=== PATIENT | female | born 1980 | race Caucasian/White ===

== ENCOUNTER 2020-04-20 14:36 | Outpatient (CLI) | payer OTHER, SELFPAY ==
--- NOTE | ~2020-04-20 | US_ITS ---
EXAMINATION: US thyroid DATE: 04/20/2020 15:02 INDICATION: Hypothyroidism, unspecified. TECHNIQUE: Multiple ultrasound images of the thyroid were obtained. COMPARISON: None. FINDINGS: The right thyroid lobe measures 3.7 x 1.2 x 1.3 cm. The left thyroid lobe measures 3.2 x 1.1 x 0.9 c m. The thyroid demonstrates diffusely heterogeneous echogenicity. No discrete nodule. Vascularity is normal. IMPRESSION: 1. Heterogeneous thyroid, which may be chronic lymphocytic (Deep) thyroiditis. Reviewed, dictated and finalized at location A. IMPRESSION: 1. Heterogeneous thyroid, which may be chronic lymphocytic (Deep) thyroidi tis.
== END 2020-04-20 14:37 | disposition home or self-care (01) ==
PROVIDERS: PCP Nurse Practitioner Family; Visit Provider Internal Medicine Endocrinology, Diabetes & Metabolism
DX: E03.9 Hypothyroidism, unspecified (principal); E04.2 Nontoxic multinodular goiter
CPT/HCPCS: 76536

== ENCOUNTER 2022-04-10 09:09 | Outpatient (CLI) | payer OTHER, SELFPAY | END 2022-04-10 09:10 | disposition home or self-care (01) | LOC: ANHWCLAB 09:12 | PROVIDERS: PCP Nurse Practitioner Family; Visit Provider Internal Medicine Endocrinology, Diabetes & Metabolism | DX: E03.9 Hypothyroidism, unspecified (principal) | CPT/HCPCS: 36415; 84439; 84443 ==

== ENCOUNTER → 2023-07-26 15:30 | Outpatient (CLI) | payer OTHER, SELFPAY ==
--- NOTE | ~2023-07-26 | MM_ITS ---
EXAMINATION: MM screening juan j BI w nguyen HISTORY: Screening mammogram TECHNIQUE: Craniocaudal and mediolateral oblique 3-D tomosynthesis images were obtained and synthetic 2-D images were generated. CAD analysis was submitted and interpreted. COMPARISON: No prior mammogram is available for comparison at this institution. BREAST PARENCHYMAL COMPOSITION:There are scattered areas of fibroglandular density. FINDINGS: Coarse benign calcifications are present at the upper, outer left breast. No suspicious mas s, calcification, or architectural distortion are identified in either breast to suggest malignancy. There has been no suspicious interval change. IMPRESSION: No mammographic evidence of malignancy. Recommend routine screening mammography in one year. BI-RADS Category 2: Benign finding(s). Reviewed, dictated and finalized at location M.
== END ==
PROVIDERS: PCP Family Medicine; Visit Provider Family Medicine
DX: Z12.31 Encounter for screening mammogram for malignant neoplasm of breast (principal)
CPT/HCPCS: 77063; 77067

== ENCOUNTER 2024-02-27 01:03 | Day surgery (SDC) | payer OTHER, SELFPAY ==
[2024-02-14 15:15] VITALS: BMI 40.8
--- NOTE | 2024-02-27 08:44 | P.PNAN_ITS ---
Anes - Initial Pre Proc Eval Procedure: Operation Date: 02/27/24 12:30 Proposed Procedures p Colonoscopy - Jaxon Sprague MD Date/Time: 02/27/24 08:44 Surgeon: Jaxon Sprague MD Pre Op Diagnosis: Hematochezia Patient Data Age: 43 Gender: F Height: 1.63 m Weight: 108 kg Allergies Allergy/AdvReac Type Severity Reaction Status Date / Time No Known Allergies Allergy Verified 02/27/24 11:15 Home Medications Medication Instructions Recorded Confirmed Type ferrous sulfate 325 mg (65 mg 325 mg PO DAILY 10/09/19 02/27/24 History iron) tablet magnesium 250 mg tablet 400 mg PO DAILY 04/12/21 02/14/24 History cholecalciferol (vitamin D3) 25 25 mcg PO DAILY 04/01/23 02/14/24 History mcg (1,000 unit) capsule levothyroxine 125 mcg tablet 125 mcg PO .COMPLEX #90 tabs 09/03/23 Rx Patient hx anesthesia problems: none Family hx anesthesia problems: none Results Review: All pre-operative results and documents have been reviewed as part of the pre- operative evaluation. [facility] Past Medical History Medical History BMI greater than 40 Dyslipidemia Goiter Hypothyroidism (acquired) Prediabetes Surgical History Surgical History No pertinent past surgical history Family History Family History Other Cerebrovascular accident Family history of arthritis Social History Social History Smoking status: Never smoker Second hand tobacco smoke exposure: No Additional smoking assessment comments: smoked occassionally in the past Alcohol intake: never Substance use: never Substance use type: does not use Living arrangements: with family Additional living arrangements comments: and son Occupation/Education: occupation 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 Gender identity (if verbalized by the patient): Female Spiritual care concerns: No Anes - Eval Final PreProcedure Day of Procedure 02/27/24 08:44 Patient weight: morbidly obese Heart: regular rate and rhythm Lungs: clear to auscultation Airway: Mallampati scale class II Neurological: alert and oriented Last oral intake: >/= 8 hours ASA classification: III Emergent: no Anesthetic plan: proceed Anesthesia type and monitoring: general GIVS and standard monitoring Results Review: All pre-operative results and documents have been reviewed as part of the pre- operative evaluation. Informed Consent: The patient's anesthetic plan and its attendant risks and benefits were discussed with the patient/family/POA. Questions were solicited and answers provided to the satisfaction of the patient/family/POA.
[2024-02-27 11:17] VITALS: BP 121/91; PULSE 89; RESP 16; TEMP 36.1; O2SAT 98
[2024-02-27] MEDS: LACTATED RINGERS 1,000 ML 150 ML IV CONT (11:26)
--- NOTE | 2024-02-27 12:46 | PM.HPGS ---
History of Present Illness History of Present Illness Consent: Risks, benefits, and alternatives have been discussed and questions answered. Patient agrees to proceed with procedure. Chief complaint: Hematochezia Narrative: Elizabeth Villatoro is a 43 year old female with intermittent rectal bleeding, never had colonoscopy Review of Systems Review of Systems: All systems reviewed & are unremarkable except as noted in HPI and below PMFSH Past Medical History Medical History (Updated 02/27/24 @ 12:46 by Jaxon Sprague MD) BMI greater than 40 Dyslipidemia Goiter Hematochezia Hypothyroidism (acquired) Prediabetes Surgical History Surgical History No pertinent past surgical history Family History Family History Other Cerebrovascular accident Family history of arthritis Social History Social History Smoking status: Never smoker Second hand tobacco smoke exposure: No Additional smoking assessment comments: smoked occassionally in the past Alcohol intake: never Substance use: never Substance use type: does not use Living arrangements: with family Additional living arrangements comments: and son Occupation/Education: occupation 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 Gender identity (if verbalized by the patient): Female Spiritual care concerns: No Meds Home Medications and Allergies Home Medications Medication Instructions Recorded Confirmed Type ferrous sulfate 325 mg (65 mg 325 mg PO DAILY 10/09/19 02/27/24 History iron) tablet magnesium 250 mg tablet 400 mg PO DAILY 04/12/21 02/14/24 History cholecalciferol (vitamin D3) 25 25 mcg PO DAILY 04/01/23 02/14/24 History mcg (1,000 unit) capsule levothyroxine 125 mcg tablet 125 mcg PO .COMPLEX #90 tabs 09/03/23 Rx Allergies Allergy/AdvReac Type Severity Reaction Status Date / Time No Known Allergies Allergy Verified 02/27/24 11:15 Vital Signs Vital Signs - 24 hr 02/27/24 11:17 Temperature 97.0 F L Pulse Rate 89 Respiratory Rate 16 Blood Pressure 121/91 H Pulse Oximetry 98 Oxygen Delivery Room Air Exam Const: General: comfortable and no acute distress HENMT: Face/Nose/Sinus: Normal nares present Eyes: General: appearance normal, both eyes and all related structures Neck: Neck: no JVD Resp: Auscultation: clear to auscultation bilaterally Cardio: Rate: regular rate Rhythm: regular rhythm GI: Inspection: non-distended GI Palp: Yes Soft to palpation Skin: General skin exam: normal color Neuro: General: gait normal Speech: normal speech Extrem: General: normal to inspection Psych: Mental Status: mental status grossly normal Assessment and Plan Assessment and plan (1) Hematochezia: Code(s): K92.1 - Melena Status: Acute Assessment and Plan: colonoscopy
[2024-02-27 13:02] VITALS: BP 117/73; PULSE 78; RESP 20; O2SAT 96
[2024-02-27 13:12] VITALS: BP 113/76; PULSE 74; RESP 24; O2SAT 96
[2024-02-27 13:22] VITALS: BP 125/83; PULSE 70; RESP 22; O2SAT 98
== END 2024-02-27 13:26 | disposition home or self-care (01) ==
PROVIDERS: PCP Family Medicine; Visit Provider Internal Medicine Gastroenterology
PROC: 0DJD8ZZ Inspection of Lower Intestinal Tract, Via Natural or Artificial Opening Endoscopic (ICD-10-PCS; CPT 45378; principal; 2024-02-27 12:30)
DX: K92.1 Melena (principal); K64.8 Other hemorrhoids; E78.5 Hyperlipidemia, unspecified; E03.9 Hypothyroidism, unspecified; R73.03 Prediabetes; E66.9 Obesity, unspecified; Z68.39 Body mass index [BMI] 39.0-39.9, adult; Z82.49 Family history of ischemic heart disease and other diseases of the circulatory system
CPT/HCPCS: 45378; J2001; J2704; J7120

== ENCOUNTER 2024-07-29 14:54 | Outpatient (CLI) | payer OTHER, SELFPAY ==
--- NOTE | ~2024-07-29 | MM_ITS ---
EXAMINATION: MM screening juan j BI w nguyen HISTORY: Screening TECHNIQUE: Craniocaudal and mediolateral oblique 3-D tomosynthesis images were obtained and synthetic 2-D images were generated. CAD analysis was submitted and interpreted. COMPARISON: 07/26/2023 BREAST PARENCHYMAL COMPOSITION: There are scattered areas of fibroglandular density. FINDINGS: There is no evidence of suspicious mass, calcification, or architectural distortion to sugg est malignancy in either breast. There has been no suspicious interval change. IMPRESSION: 1. No mammographic evidence of malignancy. 2. Recommend routine screening mammography in one year. BI-RADS Category 1: Negative Reviewed, dictated and finalized at location B.
== END 2024-07-29 14:55 | disposition home or self-care (01) ==
LOC: MICIMG 14:56
PROVIDERS: PCP Family Medicine; Visit Provider Family Medicine
DX: Z12.31 Encounter for screening mammogram for malignant neoplasm of breast (principal)
CPT/HCPCS: 77063; 77067

== ENCOUNTER 2024-12-09 14:58 | Outpatient (CLI) | payer OTHER, SELFPAY ==
--- NOTE | ~2024-12-09 | US_ITS ---
EXAMINATION: US pelvic complete w TV INDICATION: Abnormal uterine bleeding Comparison:No prior studies for comparison. TECHNIQUE: Multiple transabdominal and endovaginal sonographic images of the pelvis performed. FINDINGS: The uterus measures 10.5 x 6.4 x 8.1 cm. The endometrial complex measures 1.3 cm. The right ovary measures 3.8 x 2.3 x 2.9 cm and the left ovary measures 3.9 x 2.7 x 5.1 cm. There is a complicated septated cystic mass of the right ovary measuring 2.6 x 2.1 x 2 cm, possibly an involut ing corpus luteal cyst. There is a simple cyst of the left ovary measuring 2.6 cm. Normal doppler sig nal in both ovaries. There is no free fluid in the pelvis. There are no abnormal masses seen on either side. IMPRESSION: 1. Endometrial thickening measuring 1.3 cm. 2: Complicated cyst of the right ovary measuring 2.6 cm. Recommend follow-up ultrasound in 1-2 month s to assess for resolution. Reviewed, dictated and finalized at location A. HAMMER OPERATOR IMPRESSION: 1. Endometrial thickening measuring 1.3 cm. 2: Complicated cyst of the right ovary measuring 2.6 cm. Recommend follow-up u ltrasound in 1-2 months to assess for resolution.
== END 2024-12-09 14:59 | disposition home or self-care (01) ==
PROVIDERS: PCP Nurse Practitioner Obstetrics & Gynecology; Visit Provider Nurse Practitioner Obstetrics & Gynecology
DX: N93.9 Abnormal uterine and vaginal bleeding, unspecified (principal); N83.201 Unspecified ovarian cyst, right side
CPT/HCPCS: 76830; 76856

== ENCOUNTER 2025-01-25 14:55 | Outpatient (CLI) | payer OTHER, SELFPAY | END 2025-01-25 14:56 | disposition home or self-care (01) | PROVIDERS: PCP Nurse Practitioner Obstetrics & Gynecology; Visit Provider Nurse Practitioner Obstetrics & Gynecology | DX: N83.291 Other ovarian cyst, right side (principal) | CPT/HCPCS: 76830; 76856 ==

== ENCOUNTER 2025-02-10 14:25 | Outpatient (CLI) | payer OTHER, SELFPAY ==
[2025-02-10 15:43] LABS: Beta HCG Quantitative < 2.39 mIU/ML
--- OUTSIDE RECORDS SUMMARY | 2025-02-10 16:10 | XMS_ITS | Referral Summary ---
Author Organization [facility] Address [address] [place] [address] Care Team Providers Care Car Repairer Pullman Name Role Phone Naomi Watts NP Primary Care Provider [phone] Encounters Date Type Department Care Team Description 01/22/2025 3:45 PM ADMITTING SUPERVISOR Office Visit [facility] [place] [address] [place] [address] Rosetta Clark NP Upper respiratory tract infection, unspecified type (Primary Dx); Acute cough from Last 3 Months Allergies No known active allergies Medications levothyroxine (SYNTHROID) 125 mcg tablet Take 1 tablet (125 mcg total) by mouth daily 11/27/19 23 Active ferrous sulfate (IRON ORAL) Take by mouth Acti ve MAGNESIUM ORAL Take by mouth A ctive docusate sodium (COLACE) 100 mg capsuleIndicati ons:constipatio n Take 1-2 pills daily for chronic constipation management. 180 capsule 3 08/06/20 24 Active hydrocortisone (ANUSOL-HC) 25 mg suppository Insert 1 suppository (25 mg total) into the rectum 2 (two) times a day as needed for hemorrhoids Take prior to procedure as directed 24 suppository 3 08/06/20 24 Active aspirin 81 mg enteric coated tablet Take 1 tablet (81 mg total) by mouth daily Active cetirizine (ZyrTEC) 10 mg tablet Take by mouth Active potassium chloride, bulk, powder Take by mouth Active cyanocobalamin (Vitamin B-12) 1,000 mcg tablet Take 3 tablets (3,000 mcg total) by mouth daily Active albuterol HFA (PROVENTIL HFA,VENTOLIN HFA,PROAIR HFA) 90 mcg/actuation inhalerIndicati ons:Upper respiratory tract infection, unspecified type,Acute cough Inhale 2 puffs every 6 (six) hours as needed for wheezing for up to 7 days 1 each 01/22/20 25 Active benzonatate (TESSALON) 100 mg capsuleIndicati ons:Cough Take 1 capsule (100 mg total) by mouth 3 (three) times a day as needed for cough 42 capsule 01/22/20 25 Active azithromycin (ZITHROMAX) 250 mg tabletIndicatio ns:Upper respiratory tract infection, unspecified type,Acute cough Take 2 tabs (500 mg) by mouth today, than 1 tab (250 mg) daily for 4 days. 6 tablet 01/22/20 25 025 predniSONE (DELTASONE) 20 mg tabletIndicatio ns:Upper respiratory tract infection, unspecified type,Acute cough Take 2 tablets (40 mg) by mouth daily for 5 days 10 tablet 01/22/20 25 025 Active Problems Problem Noted Date Diagnosed Date Chronic constipation 08/06/2024 Internal hemorrhoids 08/06/2024 Social History Tobacco Use Types Packs/Day Years Used Date Smoking Tobacco: Former Cigarettes Tobacco Cessation:Counseling Given: Not Answered Comments Unknown Sex and Gender Information Value Date Recorded Sex Assigned at Not on file Legal Sex Female 10:48 AM ADMITTING SUPERVISOR Gender Identity Not on file Sexual Orientation Not on file Last Filed Vital Signs Vital Sign Reading Time Taken Comments Blood Pressure 130/84 01/22/2025 3:56 PM ADMITTING SUPERVISOR Pulse 84 01/22/2025 3:56 PM ADMITTING SUPERVISOR Temperature 36.9 C (98.4 F) 01/22/2025 3:56 PM ADMITTING SUPERVISOR Respiratory Rate 22 01/22/2025 3:56 PM ADMITTING SUPERVISOR Oxygen Saturation 94% 01/22/2025 3:56 PM ADMITTING SUPERVISOR 92-94 Inhaled Oxygen Concentration - - Weight 111.1 kg (245 lb) 01/22/2025 3:56 PM ADMITTING SUPERVISOR Height 160 cm (5' 3 ) 01/22/2025 3:56 PM ADMITTING SUPERVISOR Body Mass Index 43.4 01/22/2025 3:56 PM ADMITTING SUPERVISOR Plan of Treatment Not on file Insurance [employer] Care Teams Car Repairer Pullman Relationship Specialty Start Date End Date Naomi Watts NP PCP - General 10/10/21
--- OUTSIDE RECORDS SUMMARY | 2025-02-10 16:10 | XMS_ITS | Clinical Summary ---
Author Organization [facility] Address [address] [place] [address] Care Team Providers Care Senior Software Qa Engineer Name Role Phone Naomi Watts NP Primary Care Provider [phone] Allergies No known active allergies Medications levothyroxine [...] Date Chronic constipation 08/06/2024 Internal hemorrhoids 08/06/2024 Encounters Date Type Department Care Team Description 01/22/2025 3:45 PM BRIM IRONER HAND Office Visit [facility] [place] [address] [place] [address] Rosetta Clark NP Upper respiratory tract infection, unspecified type (Primary Dx); Acute cough from Last 3 Months Surgical History Surgery Date Site/Laterality Comments NO PAST SURGERIES Medical History Medical History Date Comments Overactive thyroid gland Family History Medical History Relation Name Comments Cancer Father Thyroid disease Mother Relation Name Status Comments Father Mother Alive Social History Tobacco Use Types Packs/Day Years Used Date Smoking Tobacco: Former Cigarettes Tobacco Cessation:Counseling Given: Not Answered Comments Unknown Sex and Gender Information Value Date Recorded Sex Assigned at Not on file Legal Sex Female 10:48 AM BRIM IRONER HAND Gender Identity Not on file Sexual Orientation Not on file Obstetrics History Last Filed Vital Signs Vital Sign Reading Time Taken Comments Blood Pressure 130/84 01/22/2025 3:56 PM BRIM IRONER HAND Pulse 84 01/22/2025 3:56 PM BRIM IRONER HAND Temperature 36.9 C (98.4 F) 01/22/2025 3:56 PM BRIM IRONER HAND Respiratory Rate 22 01/22/2025 3:56 PM BRIM IRONER HAND Oxygen Saturation 94% 01/22/2025 3:56 PM BRIM IRONER HAND 92-94 Inhaled Oxygen Concentration - - Weight 111.1 kg (245 lb) 01/22/2025 3:56 PM BRIM IRONER HAND Height 160 cm (5' 3 ) 01/22/2025 3:56 PM BRIM IRONER HAND Body Mass Index 43.4 01/22/2025 3:56 PM BRIM IRONER HAND Plan of Treatment Health Maintenance Due Date Last Done Comments Cervical Cancer Screening 1980 Depression Screening 1980 Hepatitis C Screening 1980 Varicella Vaccines (1 of 2 - 13+ 2-dose series) 1993 Hepatitis B Screening 1998 Regular Well Visit/Exam 18-64 1998 Breast Cancer Screening-Mammogram 07/26/2024 07/26/2023, 07/26/2023 DTaP/Tdap/Td Vaccine (3 - Td or Tdap) 05/29/2028 05/29/2018, 11/25/2017 Influenza Vaccine Completed 08/26/2024, 08/22/2023, 08/29/2022 HPV Vaccines Aged Out No longer eligi ble based on patient's age to complete this topic Pneumococcal vaccine <65 Aged Out No longer eligible based on patient's age to complete this topic Insurance [employer] Care Teams Senior Software Qa Engineer Relationship Specialty Start Date End Date Naomi Watts NP PCP - General 10/10/21
--- OUTSIDE RECORDS SUMMARY | 2025-02-10 16:11 | XMS_ITS | Clinical Summary ---
Author Organization [facility] [email or web address] [place] Address [address] [place] [address] Care Team Providers Care Emergency Vehicle Technician Name Role Phone Jenna Jaramillo MD Primary Care Provider [phone] Allergies No known active allergies Medications IRON ORAL Take by mouth. Active MAGNESIUM ORAL Take by mouth. Active POTASSIUM AMINOBENZOATE ORAL Take by mouth daily. Active levothyroxine 125 mcg tabletIndications: Hypothyroidism, unspecified type Take 1 tablet by mouth once daily 90 Tablet 3 Active cyanocobalamin 1,000 mcg Tablet Take 3,000 mcg by mouth daily. Active triamcinolone acetonide (KENALOG) 0.1 % CreamIndications:R jannette Apply to affected area 2 times daily. 15 Gram 4 Active Active Problems Problem Noted Date Diagnosed Date Thrombocytosis 07/28/2024 Overview (07/28/2024): Under eval with consolidator. 06/2024 Hypothyroidism 10/22/2022 Resolved Problems Problem Noted Date Diagnosed Date Resolved Date Morbid obesity with body mas s index of 40.0-49.9 03/16/2019 04/17/2021 Encounters Date Type Department Care Team Description 02/02/2025 External Device Data [facility] ABSTRACTION Provider, Abstract 02/02/2025 External Device Data [facility] ABSTRACTION Provider, Abstract 01/30/2025 External Device Data [facility] ABSTRACTION Provider, Abstract 01/29/2025 External Device Data [facility] ABSTRACTION Provider, Abstract 01/27/2025 External Device Data [facility] ABSTRACTION Provider, Abstract 01/12/2025 External Device Data [facility] ABSTRACTION Provider, Abstract 01/05/2025 External Device Data [facility] ABSTRACTION Provider, Abstract 12/16/2024 External Device Data [facility] ABSTRACTION Provider, Abstract 12/16/2024 External Device Data [facility] ABSTRACTION Provider, Abstract from Last 3 Months Immunizations Immunization Administration Dates Next Due (ADACEL/BOOSTRIX)(10 YR UP) TDAP VACCINE, 0.5ML, IM 11/25/2017 INFLUENZA VACCINE QUADRIVALENT 3 YR UP PF IM 03/2022 INFLUENZA VACCINE QUADRIVALENT 6 MOS UP PF IM INFLUENZA VACCINE TRIVALENT SPLIT VIRUS, (6 MOS UP), 0.5ML (PF), IM 08/26/2024 Family History Medical History Relation Name Comments Cancer Father pancreatic Stroke Father Unknown Maternal Grandfather Other Maternal Grandmother Hypertension Mother Emphysema Paternal Grandfather Unknown Paternal Grandmother No Known Problems Sister 1 No Known Problems Sister 2 ADHD Son Asthma Son Eczema Son Relation Name Status Comments Father Maternal Grandfather Maternal Grandmother Mother Alive htn, thyroid no dules Paternal Grandfather Paternal Grandmother Sister 1 Alive Sister 2 Alive Son Alive Social History Tobacco Use Types Packs/Day Years Used Date Smoking Tobacco: Former Smokeless Tobacco: Never Tobacco Cessation:Counseling Given: Not Answered Alcohol Use Standard Drinks/Week Comments Not Currently 0 (1 standard drink = 0.6 oz pur e alcohol) Comments No Sex and Gender Information Value Date Recorded Sex Assigned at Not on file Legal Sex Female 10:16 AM CDT Gender Identity Not on file Sexual Orientation Not on file Last Filed Vital Signs Vital Sign Reading Time Taken Comments Blood Pressure 122/78 08/18/2024 9:13 AM CDT Pulse 77 08/18/2024 9:13 AM CDT Temperature 36.3 C (97.3 F) 08/18/2024 9:13 AM CDT Respiratory Rate 18 08/18/2024 9:13 AM CDT Oxygen Saturation 97% 08/18/2024 9:13 AM CDT Inhaled Oxygen Concentration - - Weight 111.6 kg (246 lb) 08/18/2024 9:13 AM CDT Height 162.6 cm (5' 4 ) 08/18/2024 9:13 AM CDT Body Mass Index 42.23 08/18/2024 9:13 AM CDT Plan of Treatment Upcoming Encounters Date Type Department Care Team (Late st Contact Info) Description 03/31/2025 7:40 AM CDT Office Visit [facility] [email or web address] [place] [address] [place] [address] Health Maintenance Due Date Last Done Comments HEPATITIS B VACCINES (1 of 3 - 19+ 3-dose series) 1999 BREAST CANCER SCREENING 07/26/2024 07/26/2023 Preventative Visit- Commercial 11/25/2024 12/05/2022 Pre-Diabetes and Diabetes Screening 12/05/2025 12/05/2022 PAP SMEAR 03/18/2027 03/18/2024, 12/05/2022, 12/05/2022 DTAP/TDAP/TD VACCINES (2 - T d or Tdap) 11/25/2027 11/25/2017 INFLUENZA VACCINE Completed 08/26/2024, 08/22/2023, 08/29/2022 HPV VACCINES Aged Out No longer eligi ble based on patient's age to complete this topic Procedures Procedure Name Priority Date/Time Associated Diagnosis Comments CERV/VAG CYTO AGE BASED SCREEN PAP Routine 03/18/2024 2:30 PM CDT Well woman exam with routine gynecological exam MAMMO 3D KENNEDY SCREEN BILAT W OR WO CAD Routine 07/26/2023 Encounter for screening mammogram for malignant neoplasm of breast HEMOGLOBIN A1C Routine 12/05/2022 2:46 PM LENS EDGER Routine general medical examination at a health care facility from Last 3 Months or Most Recently Relevant to Health Maintenance Results * CERV/VAG CYTO AGE BASED SCREEN PAP (03/18/2024 2:30 PM CDT) COMMENT (PAP): [facility] [place] Comment: This order for age-based cervical cancer and STI screening follows ACOG guidelines(PB 168, 140, HEI005). See individual assays for performing site location. CLINICAL INFORMATION [facility] [place] Comment:None given LAST MENSTRUAL PERIOD [facility] [place] Comment:03/06/2024 PREV PAP: [facility] [place] Comment:NONE GIVEN PREV BX: [facility] [place] Comment:NONE GIVEN SOURCE [facility] [place] Comment:Endocervix ADEQUACY: [facility] [place] Comment: Satisfactory for evaluation. Endocervical/transformation zone component present. PAP INTERP [facility] [place] Comment: Cytology Results: Negative for intraepithelial lesion or malignancy. COMMENT (PAP TEST) [facility] [place] Comment: This case could not be evaluated with computer assisted technology. The slide was manually screened according to routine procedures. BLENDER SNUFF: [facility] [place] Comment: TMK, CT(ASCP) CT screening location: [place] [address] [place] [address] EXPLANATORY NOTE [facility] Comment: EXPLANATORY NOTE: The Pap is a screening test for cervical cancer. It is not a diagnostic test and is subject to false negative and false positive results. It is most reliable when a satisfactory sample, regularly obtained, is submitted with relevant clinical findings and history, and when the Pap result is evaluated along with historic and current clinical information. HPV E6/E7 Not Detected Not Detected [facility] [place] Comment: Methodology: Blow Pit Helper-Mediated Amplification This assay detects E6/E7 viral messenger RNA (mRNA) from 14 high-risk HPV types (16,18,31,33,35,39,45,51,52,56,58,59,66,68). Cervical sources are required for HPV testing. If a vaginal source from a patient who has had a total hysterectomy with removal of cervix was submitted, please contact the testing laboratory for alternative testing options. For additional information, please refer to http://education.uchoose.Iptivia/faq/QKX271x6 (This link if provided for information/ educational purposes only.) Test Performed at: [facility] [address], [place] [address] James FINK Genital SWAB OF ENDOCERVIX / Unknown 03/18/2024 2:30 PM CDT 03/19/2024 3:18 AM CDT Joceline Coleman MD PATHOLOGY/CYTOLOGY ORDERABLES Final Result [facility] [phone] [facility] [address] [place] [address] * MAMMO SCRN BILAT 3D KENNEDY W OR WO CAD (07/26/2023) Anatomical Region Laterality Modality Breast Bilateral Mammography us Joceline Coleman MD MAMMO ORDERABLES Final Result * HEMOGLOBIN A1C (12/05/2022 2:46 PM LENS EDGER) HEMOGLOBIN A1C 5.5 <5.7 % of total Hgb [facility] Comment: For the purpose of screening for the presence of diabetes: <5.7% Consistent with the absence of diabetes 5.7-6.4% Consistent with increased risk for diabetes (prediabetes) > or =6.5% Consistent with diabetes This assay result is consistent with a decreased risk of diabetes. Currently, no consensus exists regarding use of hemoglobin A1c for diagnosis of diabetes in children. According to [place] Diabetes Association (ADA) guidelines, hemoglobin A1c <7.0% represents optimal control in non- diabetic patients. Different metrics may apply to specific patient populations. Standards of Medical Care in Diabetes(ADA). ESTIMATED AVERAGE GLUCOSE (MG/DL) 111 mg/dL [facility] ESTIMATED AVERAGE GLUCOSE (MMOL/L) 6.2 mmol/L [facility] Comment: Test Performed at: [facility] [address] [place] [address] Gary Bravo D.O., MPH Blood 12/05/2022 2:46 PM LENS EDGER 12/06/2022 3:55 AM LENS EDGER us Joceline Coleman MD CHEMISTRY ORDERABLES Final Re sult [facility] [phone] [facility] [address] [place] [address] from Last 3 Months or Most Recently Relevant to Health Maintenance Insurance [employer] [address] [place], [place] [address]GIANCE OPEN ACCESS * Guarantor: [employer] Account Type Relation to Patient Date of Phone Billing Address Corporate Employer ATTN: LINDA RUSH [address] [address] Care Teams Emergency Vehicle Technician Relationship Specialty Start Date End Date Jenna Jaramillo MD [address] [place] [address] PCP - General Internal Medicine 04/07/24
--- OUTSIDE RECORDS SUMMARY | 2025-02-10 16:11 | XMS_ITS | Clinical Summary ---
Author Organization [facility] Address [address] [place] [address] Phone Care Team Providers Care Family Resource Coordinator Name Role Phone Jenna Jaramillo MD Primary Care Provider Unavail able Allergies No known active allergies Medications Pyridoxine HCl (VITAMIN B-6 PO) Take 100 mg by mouth once. Active Cyanocobalamin (VITAMIN B-12) 1000 MCG Tablet Take 3,000 mcg by mouth daily. Active POTASSIUM CHLORIDE PO Take by mouth. Active levothyroxine (SYNTHROID) 125 MCG Tablet Take 125 mcg by mouth daily. Active Cetirizine HCl (ZYRTEC ALLERGY PO) Take by mouth. Active Ferrous Sulfate (IRON PO) Take 325 mg by mouth daily. Active MAGNESIUM PO Take 400 mg by mouth once. Active Doxycycline Hyclate 20 MG Tablet Take 1 Tablet by mouth 2 times daily. 09/16/2024 Active ASPIRIN PO Take 81 mg by mouth daily. Active Multiple Vitamin (MULTI-VITAMIN PO) Take by mouth. Active Active Problems Problem Noted Date Diagnosed Date Hypothyroid 06/30/2024 Iron deficiency anemia due to chronic blood loss 06/30/2024 Thrombocytosis 06/30/2024 Social History Tobacco Use Types Packs/Day Years Used Date Smoking Tobacco: Former Cigarettes Q uit: 1999 Smokeless Tobacco: Never Tobacco Cessation:Counseling Given: Not Answered Alcohol Use Standard Drinks/Week Comments Not Currently 0 (1 standard drink = 0.6 oz pur e alcohol) Sexually Active Control Partners Comments Not Currently Comments No Sex and Gender Information Value Date Recorded Sex Assigned at Not on file Legal Sex Female 2:58 PM CDT Gender Identity Not on file Sexual Orientation Not on file Last Filed Vital Signs Vital Sign Reading Time Taken Comments Blood Pressure 115/73 11/11/2024 2:48 PM FISHER POUND NET OR TRAP Pulse 78 11/11/2024 2:48 PM [employer]ER [employer] NET OR TRAP Temperature 36.7 C (98 F) 11/11/2024 2:48 PM [employer]ER [employer]OUND NET OR TRAP Respiratory Rate 18 11/11/2024 2:48 PM FISHER POUND NET OR TRAP Oxygen Saturation 99% 11/11/2024 2:48 PM FISHER POUND NET OR TRAP Inhaled Oxygen Concentration - - Weight 113.4 kg (250 lb 1.6 oz) 11/11/2024 2:48 PM FISHER POUND NET OR TRAP Height 160 cm (5' 3 ) 11/11/2024 2:48 PM [employer]ER [employer]OUND NET OR TRAP Body Mass Index 44.3 11/11/2024 2:48 PM FISHER [employer]OUND NET OR TRAP Plan of Treatment Upcoming Encounters Date Type Department Care Team (Late st Contact Info) Description 05/05/2025 3:30 PM CDT Lab [facility] [address] [place] [address] Elis Moncada Uzma, [facility] [address] [place] [address] Discharge Disposition: Discharged to home or Selfcare 05/13/2025 2:40 PM CDT Office Visit [facility] [address] [place] [address] MoncadaElis sue Uzma, [facility] [address] [place] [address] Discharge Disposition: Discharged to home or Selfcare Health Maintenance Due Date Last Done Comments Hepatitis C Virus (HCV) Screening 1980 Hepatitis B Immunization (1 of 3 - 19+ 3-dose series) 1999 Pap Smear 2001 Cervical Cancer Screening (CCS) 2010 HPV/Cotest 2010 Mammogram 07/26/2024 07/26/2023, 07/26/2023 SARS-COV-2 Immunization ( season) 2024 04/20/2022, 08/19/2021, 07/22/2021 Respiratory Syncytial Virus (RSV) Immunization (Adult) (1 - 1-dose 75+ series) 2055 TdaP Immunization Completed 05/29/2018, 11/25/2017 Discussion re Starting/Frequency of Mammograms Completed 07/26/2023 Influenza Immunization Completed , 08/22/2023, 08/29/2022 Meningococcal Immunization (ACWY) Aged Out No longer eligible b ased on patient's age to complete this topic Pneumococcal Immunization Combined Aged Out No longer eligible b ased on patient's age to complete this topic Rotavirus Immunization Aged Out No lo nger eligible based on patient's age to complete this topic Insurance [facility] Care Teams Family Resource Coordinator Relationship Specialty Start Date End Date Jenna Jaramillo MD PCP - General Internal Medicine 06/23/24
[2025-02-11 01:43] LABS: Progesterone <0.5 ng/mL
[2025-02-12 02:37] LABS: FSH 5.7 mIU/mL; LH 1.6 mIU/mL
[2025-02-16 21:19] LABS: Estrogen 382 pg/mL
== END 2025-02-10 14:26 | disposition home or self-care (01) ==
LOC: ANHLAB 14:27
PROVIDERS: PCP Nurse Practitioner Obstetrics & Gynecology; Visit Provider Obstetrics & Gynecology
DX: N92.0 Excessive and frequent menstruation with regular cycle (principal)
CPT/HCPCS: 36415; 82672; 83001; 83002; 84144; 84702

== ENCOUNTER 2025-05-11 14:56 | Outpatient (CLI) | payer OTHER, SELFPAY ==
--- NOTE | ~2025-05-11 | US_ITS ---
Pelvic ultrasound. Clinical History: Ovarian cyst Technique: Realtime transabdominal and transvaginal scanning of the pelvis was performed. Color flow Doppler and Doppler spectral analysis were performed. Findings: The uterus is anteverted, and measures 11.0 x 6.8 x 7.1 cm. The endometrial stripe has a t hickness of 8 mm. No focal mass is identified. The right ovary measures 3.6 x 2.1 x 3.3 cm. No significant right ovarian or adnexal mass is seen. The left ovary measures 3.4 x 2.0 x 3.4 cm. No significant left ovarian or adnexal mass is seen. There is no evidence of free fluid in the cul de sac. Impression: No significant abnormality seen. Reviewed, dictated and finalized at [facility]. Impression: No significant abnormality seen.
== END 2025-05-11 14:57 | disposition home or self-care (01) ==
LOC: MICIMG 14:57
PROVIDERS: PCP Nurse Practitioner Obstetrics & Gynecology; Visit Provider Obstetrics & Gynecology
DX: N83.209 Unspecified ovarian cyst, unspecified side (principal)
CPT/HCPCS: 76830; 76856

== ENCOUNTER 2025-07-22 16:03 | Outpatient (CLI) | payer OTHER, SELFPAY ==
--- OUTSIDE RECORDS SUMMARY | 2025-07-22 16:08 | XMS_ITS | Clinical Summary ---
Author Organization [facility] Address [address] [place] [address] Phone Care Team Providers Care Purse Seining Hand Name Role Phone Jenna Jaramillo MD Primary [...] Comments Blood Pressure 115/73 11/11/2024 2:48 PM MANAGER ENT Pulse 78 11/11/2024 2:48 PM MANAGER ENT Temperature 36.7 C (98 F) 11/11/2024 2:48 PM MANAGER ENT Respiratory Rate 18 11/11/2024 2:48 PM MANAGER ENT Oxygen Saturation 99% 11/11/2024 2:48 PM MANAGER ENT Inhaled Oxygen Concentration - - Weight 113.4 kg (250 lb 1.6 oz) 11/11/2024 2:48 PM MANAGER ENT Height 160 cm (5' 3) 11/11/2024 2:48 PM MANAGER ENT Body Mass Index 44.3 11/11/2024 2:48 PM MANAGER ENT Plan of Treatment Health Maintenance Due Date Last Done Comments Hepatitis C Virus (HCV) Screening 1980 Hepatitis B Immunization (1 of 3 - 19+ 3-dose series) 1999 Pap Smear 2001 Human Papillomavirus (HPV) Immunization (1 - 3-dose SCDM series) 2007 Cervical Cancer Screening (CCS) 2010 HPV/Cotest 2010 Mammogram 07/26/2024 07/26/2023, 07/26/2023 SARS-COV-2 Immunization ( season) 2024 04/20/2022, 08/19/2021, 07/22/2021 Cologuard 2025 Colonoscopy 2025 Colorectal Cancer Screening 2025 Immunochemical Fecal Occult Blood 2025 Influenza Immunization (#1) 2025 10/0 12/2023, 08/22/2023, 08/29/2022 Respiratory Syncytial Virus (RSV) Immunization (Adult) (1 - 1-dose 75+ series) 2055 TdaP Immunization Completed 05/29/2018, 11/25/2017 Discussion re Starting/Frequency of Mammograms Completed 07/26/2023 Meningococcal Immunization (ACWY) Aged Out No longer eligible b ased on patient's age to complete this topic Pneumococcal Immunization Combined Aged Out No longer eligible b ased on patient's age to complete this topic Rotavirus Immunization Aged Out No lo nger eligible based on patient's age to complete this topic Insurance [facility] Care Teams Purse Seining Hand Relationship Specialty Start Date End Date Jenna Jaramillo MD PCP - General Internal Medicine 06/23/24
--- OUTSIDE RECORDS SUMMARY | 2025-07-22 16:08 | XMS_ITS | Clinical Summary ---
Author Organization [facility] [employer] Address [address] [place] [address] Care Team Providers Care Global Sales Director Name Role Phone Jenna Jaramillo MD Primary Care Provider [phone] Allergies No known active allergies Medications IRON ORAL Take by mouth. Activ e MAGNESIUM ORAL Take by mouth. Active POTASSIUM AMINOBENZOATE ORAL Take by mouth daily. Active levothyroxine 125 mcg tabletIndications :Hypothyroidism, unspecified type Take 1 tablet by mouth once daily 90 Tablet 08/26/20 23 Active cyanocobalamin 1,000 mcg Tablet Take 3,000 mcg by mouth daily. Active triamcinolone acetonide (KENALOG) 0.1 % CreamIndications: Rash Apply to affected area 2 times daily. 15 Gram 08/18/20 24 Active aspirin (ECOTRIN EC) 81 mg Tablet, Delayed Release (E.C.) Take 81 mg by mouth daily. Active cetirizine (ZyrTEC) 10 mg tablet Take by mouth. Activ e docusate sodium (COLACE) 100 mg capsule TAKE 1 TO 2 CAPSULES BY MOUTH ONCE DAILY FOR CHRONIC CONSTIPATION MANAGEMENT 03/14/20 25 Active drospirenone, contraceptive, (Slynd) 4 mg (28) Tablet Take by mouth daily. Active Active Problems Problem Noted Date Diagnosed Date Thrombocytosis 07/28/2024 Overview (07/28/2024): Under eval with baby formula mixer. 06/2024 Iron deficiency anemia due to chronic blood loss 06/30/2024 Hypothyroidism 10/22/2022 Resolved Problems Problem Noted Date Diagnosed Date Resolved Date Morbid obesity with body mas s index of 40.0-49.9 03/16/2019 04/17/2021 Encounters Date Type Department Care Team Description 06/29/2025 External Device Data STL ABSTRACTION Provider, Abstract 06/09/2025 External Device Data STL ABSTRACTION Provider, Abstract 06/08/2025 External Device Data ST[facility] ABSTRACTION Provider, Abstract 05/11/2025 External Device Data STL ABSTRACTION Provider, Abstract 04/27/2025 External Device Data STL ABSTRACTION Provider, Abstract 04/23/2025 Results Follow-Up [facility] [employer] [place] [address] [place] [address] Jenna Jaramillo MD HEMOGLOBIN A1C 04/22/2025 2:30 PM CDT Office Visit [facility] [employer] [place] [address] [place] [address] Jenna Jaramillo MD Elevated glucose (Primary Dx); Iron deficiency anemia due to chronic blood loss; Thrombocytosis; Acquired hypothyroidism from Last 3 Months Immunizations Immunization Administration [...] Sign Reading Time Taken Comments Blood Pressure 124/82 04/22/2025 2:32 PM CDT Pulse 90 04/22/2025 2:32 PM CDT Temperature 36.3 C (97.3 F) 08/18/2024 9:13 AM CDT Respiratory Rate 18 04/22/2025 2:32 PM CDT Oxygen Saturation 95% 04/22/2025 2:32 PM CDT Inhaled Oxygen Concentration - - Weight 117.6 kg (259 lb 3.2 oz) 04/22/2025 2:32 PM CDT Height 162.6 cm (5' 4) 04/22/2025 2:32 PM CDT Body Mass Index 44.49 04/22/2025 2:32 PM CDT Plan of Treatment Health Maintenance Due Date Last Done Comments HEPATITIS B VACCINES (1 of 3 - 19+ 3-dose series) 1999 HPV VACCINES (1 - 3-dose SCDM series) 2007 BREAST CANCER SCREENING 07/26/2024 07/26/2023, 07/26 Preventative Visit- Commercial 11/25/2024 12/05/2022 FIT-DNA Q 3 years 2025 FIT/FOBT Q 1 year 2025 Flex Sig/CT Colonography Q 5 years 2025 INFLUENZA VACCINE (#1) 2025 , 08/22/2023, 08/29/2022 PAP SMEAR 03/18/2027 03/18/2024, 11/25, 12/05/2022 DTAP/TDAP/TD VACCINES (2 - T d or Tdap) 11/25/2027 11/25/2017 Pre-Diabetes and Diabetes Screening 04/22/202804/22, 12/05/2022 CERVICAL CANCER SCREENING 03/18/2029 HPV/Cotest (21-29) 03/18/2029 03/18/2024, 12/05/2022 HPV/Cotest (30-65) 03/18/2029 03/18/2024, 12/05/2022 COLORECTAL SCREENING 02/26/2034 02/27/2024 Colorectal Cancer Screening 02/26/2034 Procedures Procedure Name Priority Date/Time Associated Diagnosis Comments HEMOGLOBIN A1C Routine 04/22/2025 3:34 PM CDT Elevated glucose CERV/VAG CYTO AGE BASED SCREEN PAP Routine 03/18/2024 2:30 PM CDT Well woman exam with routine gynecological exam ENDOSCOPY, COLON, DIAGNOSTIC Routine 02/27/2024 Hematochezia MAMMO 3D KENNEDY SCREEN BILAT W OR WO CAD Routine 07/26/2023 Encounter for screening mammogram for malignant neoplasm of breast from Last 3 Months or Most Recently Relevant to Health Maintenance Results * HEMOGLOBIN A1C (04/22/2025 3:34 PM CDT) HEMOGLOBIN A1C 5.6 <5.7 % of total Hgb ADIKTIVOAlex Alfred Comment: For the purpose of screening for the presence of diabetes: <5.7% Consistent with the absence of diabetes 5.7-6.4% Consistent with increased risk for diabetes (prediabetes) > or =6.5% Consistent with diabetes This assay result is consistent with a decreased risk of diabetes. Currently, no consensus exists regarding use of hemoglobin A1c for diagnosis of diabetes in children. According to [place] Diabetes Association (ADA) guidelines, hemoglobin A1c <7.0% represents optimal control in non- diabetic patients. Different metrics may apply to specific patient populations. Standards of Medical Care in Diabetes(ADA). ESTIMATED AVERAGE GLUCOSE (MG/DL) 114 mg/dL ADIKTIVOAlex Alfred ESTIMATED AVERAGE GLUCOSE (MMOL/L) 6.3 mmol/L ADIKTIVOAlex Alfred Comment: Test Performed at: [facility] [address] [place] [address] James Beard Blood 04/22/2025 3:34 PM CDT 04/22/2025 11:32 PM CDT us Jenna Jaramillo MD CHEMISTRY ORDERABLES Final Res ult [facility] [phone] [place] [address] [place] [address] * CERV/VAG CYTO AGE BASED SCREEN PAP (03/18/2024 2:30 PM CDT) COMMENT (PAP): [facility] Comment: This order for age-based cervical cancer and STI screening follows ACOG guidelines(PB 168, 140, VYT241). See individual assays for performing site location. CLINICAL INFORMATION [facility] Comment:None given LAST MENSTRUAL PERIOD [facility] Comment:03/06/2024 PREV PAP: [facility] Comment:NONE GIVEN PREV BX: [facility] Comment:NONE GIVEN SOURCE [facility] Comment:Endocervix ADEQUACY: [facility] Comment: Satisfactory for evaluation. Endocervical/transformation zone component present. PAP INTERP [facility] Comment: Cytology Results: Negative for intraepithelial lesion or malignancy. COMMENT (PAP TEST) [facility] [place] Comment: This case could not be evaluated with computer assisted technology. The slide was manually screened according to routine procedures. BACON STRINGER: [facility] [place] Comment: BOZENA TAN(ASCP) CT screening location: [place] [address] [address] [place] [address] EXPLANATORY NOTE [facility] [place] Comment: EXPLANATORY NOTE: The Pap is a [...] information. HPV E6/E7 Not Detected Not Detected [facility] Comment: Methodology: Mining Machinery Assembler-Mediated Amplification This assay detects E6/E7 viral messenger RNA (mRNA) from 14 high-risk HPV types (16,18,31,33,35,39,45,51,52,56,58,59,66,68). Cervical sources are required for HPV testing. If a vaginal source from a patient who has had a total hysterectomy with removal of cervix was submitted, please contact the testing laboratory for alternative testing options. For additional information, please refer to http://education.[employer]faq/JQV126m7 (This link if provided for information/ educational purposes only.) Test Performed at: [facility] [address] [address] [place] [address] James FINK Genital SWAB OF ENDOCERVIX / Unknown 03/18/2024 2:30 PM CDT 03/19/2024 3:18 AM CDT Joceline Coleman MD PATHOLOGY/CYTOLOGY ORDERABLES Final Result [facility] [phone] [facility] [address] [address] [place] [phone] * ENDOSCOPY, COLON, DIAGNOSTIC (02/27/2024) Catrachita Martinez ACCOUNTING METHODS ANALYST GI PROCEDURE ORDERABLES Final Re sult [facility] CLIA# [id number] [address] [place] [address] * MAMMO SCRN BILAT 3D KENNEDY W OR WO CAD (07/26/2023) Anatomical Region Laterality Modality Breast Bilateral Mammography Joceline Coleman MD MAMMO ORDERABLES Final Result from Last 3 Months or Most Recently Relevant to Health Maintenance Insurance ALLEGIANCE OPEN ACCESS ALLEGIANCE OPEN ACCESS * Guarantor: [employer] Account Type Relation to Patient Date of Phone Billing Address Corporate Employer ATTN: LINDA RUSH [address] [address] Care Teams Global Sales Director Relationship Specialty Start Date End Date Jenna Jaramillo MD [address] [place] [address] PCP - General Internal Medicine 04/07/24
[2025-07-22 16:32] LABS: Hematocrit 37.3 % (37.0-47.0); Hemoglobin 12.2 g/dL (12.0-15.0)
== END 2025-07-22 16:04 | disposition home or self-care (01) ==
LOC: ANHLAB 16:06
PROVIDERS: PCP Internal Medicine; Visit Provider Anesthesiology
DX: D64.9 Anemia, unspecified (principal)
CPT/HCPCS: 36415; 85014; 85018

== ENCOUNTER 2025-07-30 02:39 | Day surgery (SDC) | payer OTHER, SELFPAY ==
[2025-07-22 14:20] VITALS: BMI 42.8
--- NOTE | 2025-07-22 14:27 | PC.NURSE ---
Report to the Outpatient Waiting Room, entrance under the green pavilion located off [facility], at time _0730_ on date _[id number]_. Planned Procedure Time: _0930_.? Time changes happen often and if your time is changed the preop area will call you the afternoon before. - You and your visitor will be asked to self-screen and do not enter if you have any COVID symptoms. Please call surgeon if you need to reschedule. - A mask is optional within the hospital at this time. Patients may have clear liquids (water, carbonated beverages, clear teas, apple juice) until 3 hours prior to surgery with a maximum of 20 ounces. - No food from midnight until time of surgery and no smoking, or chewing tobacco (or any form of nicotine). No chewing gum, candy or mints. Take only the following medications with a SIP of water on the morning of surgery: __Levothyroxine DO NOT STOP ANY OF YOUR OTHER PRESCRIPTION MEDICATIONS PRIOR TO SURGERY EXCEPT THE FOLLOWING Hold all vitamins and supplements for 3 days per anesthesiologist. Medications to discontinue per physician Date to take last zzhc___[id number]____ Please no make-up, nail paraguayan, hairspray, perfume, deodorant, or body powder the day of surgery.? No jewelry (including any body piercings) or valuables the day of surgery, leave them at home.? Please take a shower or bath the night before, or the morning of, surgery with an antibacterial soap.? Wear comfortable, loose fitting clothing.? - Jewelry must be removed prior to entering the operating room.? Rings and piercings that are not removed may be cut off. - The hospital will not accept responsibility for valuables.? - Please leave all valuables, including medications, at home the day of surgery. If you are going home after surgery, a licensed water truck driver must drive you home.? - NO public transportation without another adult if you receive anesthesia. - We recommend that an adult stay with you for 24 hours following discharge. - We also recommend that you do not drive, make important decision, drink alcoholic beverages, or take any drugs that were not prescribed by your health care provider for at least 24 hours after your discharge time. Follow any additional instructions given to you from your surgeon. Telephone instructions given to __lEizabeth___and asked if any additional questions and then verbalized understanding. Patient advised to call surgeon office or pre surgery nurse liaison [phone] if any additional questions.
--- OUTSIDE RECORDS SUMMARY | 2025-07-30 02:50 | XMS_ITS | Clinical Summary ---
Author Organization [facility] Address [address] [place] [address] Phone Care Team Providers Care Industrial Engineering Analyst Name Role Phone Jenna Jaramillo MD Primary [...] Comments Blood Pressure 115/73 11/11/2024 2:48 PM BARLEY STEEPER Pulse 78 11/11/2024 2:48 PM BARLEY STEEPER Temperature 36.7 C (98 F) 11/11/2024 2:48 PM BARLEY STEEPER Respiratory Rate 18 11/11/2024 2:48 PM BARLEY STEEPER Oxygen Saturation 99% 11/11/2024 2:48 PM BARLEY STEEPER Inhaled Oxygen Concentration - - Weight 113.4 kg (250 lb 1.6 oz) 11/11/2024 2:48 PM BARLEY STEEPER Height 160 cm (5' 3) 11/11/2024 2:48 PM BARLEY STEEPER Body Mass Index 44.3 11/11/2024 2:48 PM BARLEY STEEPER Plan of Treatment Health Maintenance Due Date Last Done Comments Hepatitis C Virus (HCV) Screening 1980 Hepatitis B Immunization (1 of 3 - 19+ 3-dose series) 1999 Pap Smear 2001 Human Papillomavirus (HPV) Immunization (1 - 3-dose SCDM series) 2007 Cervical Cancer Screening (CCS) 2010 HPV/Cotest 2010 Mammogram 07/26/2024 07/26/2023, 07/26/2023 Cologuard 2025 Colonoscopy 2025 Colorectal Cancer Screening 2025 Immunochemical Fecal Occult Blood 2025 Influenza Immunization (#1) 07/26/202512/2023, 08/22/2023, 08/29/2022 SARS-COV-2 Immunization ( season) 2025 04/20/2022, 08/19/2021, 07/22/2021 Respiratory Syncytial Virus (RSV) [...] patient's age to complete this topic Insurance [facility] Care Teams Industrial Engineering Analyst Relationship Specialty Start Date End Date Jenna Jaramillo MD PCP - General Internal Medicine 06/23/24
--- OUTSIDE RECORDS SUMMARY | 2025-07-30 02:50 | XMS_ITS | Clinical Summary ---
Author Organization [facility] [employer] Address [address] [place] [address] Care Team Providers Care Driller Machine Name Role Phone Jenna Jaramillo MD Primary Care Provider [phone] Allergies No known active allergies Medications IRON [...] Thrombocytosis 07/28/2024 Overview (07/28/2024): Under eval with electric meter reader. 06/2024 Iron deficiency anemia due to chronic [...] A1C 5.6 <5.7 % of total Hgb [facility] Alfred Comment: For the purpose of screening for the presence of diabetes: <5.7% Consistent with the absence of diabetes 5.7-6.4% Consistent with increased risk for diabetes (prediabetes) > or =6.5% Consistent with diabetes This assay result is consistent with a decreased risk of diabetes. Currently, no consensus exists regarding use of hemoglobin A1c for diagnosis of diabetes in children. According to [place] Diabetes Association (ADA) guidelines, hemoglobin A1c <7.0% represents optimal control in non- diabetic patients. Different metrics may apply to specific patient populations. Standards of Medical Care in Diabetes(ADA). ESTIMATED AVERAGE GLUCOSE (MG/DL) 114 mg/dL Pushing InnovationAlex Alfred ESTIMATED AVERAGE GLUCOSE (MMOL/L) 6.3 mmol/L [facility] Alfred Comment: [facility] Performed at: [facility] [address] [place] [address] James Beard Blood 04/22/2025 3:34 PM CDT 04/22/2025 11:32 PM CDT us Jenna Jaramillo MD CHEMISTRY ORDERABLES Final Res ult [facility] [phone] [facility] [address] [place] [address] * CERV/VAG CYTO AGE BASED SCREEN PAP (03/18/2024 2:30 PM CDT) COMMENT (PAP): [facility] Comment: This order for age-based cervical cancer and STI screening follows ACOG guidelines(PB 168, 140, OQK194). See individual assays for performing site location. CLINICAL INFORMATION [facility] Comment:None given LAST MENSTRUAL PERIOD [facility] [place] Comment:03/06/2024 PREV PAP: [facility] [place] Comment:NONE GIVEN PREV BX: [facility] Comment:NONE GIVEN SOURCE [facility] Comment:Endocervix ADEQUACY: [facility] [place] Comment: Satisfactory for evaluation. Endocervical/transformation zone component present. PAP INTERP [facility] [place] Comment: Cytology Results: Negative for intraepithelial lesion or malignancy. COMMENT (PAP TEST) [facility] [place] Comment: This case could not be evaluated with computer assisted technology. The slide was manually screened according to routine procedures. REPAIR SERVICE DISPATCHER: [facility] [place] Comment: TMK, CT(ASCP) CT screening location: [place] [address] [place] [address] EXPLANATORY NOTE Que [facility] Boyle Comment: EXPLANATORY NOTE: The Pap is [...] information. HPV E6/E7 Not Detected Not Detected [facility] [place] Comment: Methodology: Verifier-Mediated Amplification This assay detects E6/E7 viral messenger RNA (mRNA) from 14 high-risk HPV types (16,18,31,33,35,39,45,51,52,56,58,59,66,68). Cervical sources are required for HPV testing. If a vaginal source from a patient who has had a total hysterectomy with removal of cervix was submitted, please contact the testing laboratory for alternative testing options. For additional information, please refer to http://education.[employer]/faq/QHM329h5 (This link if provided for information/ educational purposes only.) Test Performed at: [facility] [address], [place] [address] James FINK Genital SWAB OF ENDOCERVIX / Unknown 03/18/2024 2:30 PM CDT 03/19/2024 3:18 AM CDT Joceline Colmean MD PATHOLOGY/CYTOLOGY ORDERABLES Final Result [facility] [phone] [facility] [address] [place] [address] * ENDOSCOPY, COLON, DIAGNOSTIC (02/27/2024) us Catrachita Martinez PULP GRINDER FEEDER GI PROCEDURE ORDERABLES Final Re sult Performing Organization Address City[facility]/ZIP Co de Phone Number [facility] CLIA# [id number] [address] [place] [address] * MAMMO SCRN BILAT 3D KENNEDY W OR WO CAD (07/26/2023) Anatomical Region Laterality Modality Breast Bilateral Mammography us Joceline Coleman MD MAMMO ORDERABLES Final Result from Last 3 Months or Most Recently Relevant to Health Maintenance Insurance ALLEGIANCE OPEN ACCESS ALLEGIANCE OPEN ACCESS * Guarantor: [employer] Account Type Relation to Patient Date of Phone Billing Address Corporate Employer ATTN: LINDA RUSH [address] [address] Care Teams Driller Machine Relationship Specialty Start Date End Date Jenna Jaramillo MD [address] [place] [address] [place] [address] PCP - General Internal Medicine 04/07/24
[2025-07-30 08:00] VITALS: BP 120/80; PULSE 66; RESP 14; TEMP 36.6; O2SAT 97; BMI 41.3
[2025-07-30] MEDS: LACTATED RINGERS 1,000 ML 30 ML IV CONT (08:10)
[2025-07-30] MEDS: ACETAMINOPHEN 500 MG TABLET 1000 MG PO (08:15)
--- NOTE | 2025-07-30 08:23 | PM.IMHP ---
H&P: HPI History of Present Illness Date/Time: 07/30/25 08:23 Chief Complaint: Menorrhagia Narrative: She is here for follow up on menorrhagia. She stopped prior pills did not work for her. She continues to have heavy periods. She had an ultrasound in April for follow up ovarian cyst. The ultrasound was normal. Endometrial biopsy normal. She wants to get an endometrial ablation. She has been counseled regarding treatment options and risk and benefits of all options. Review of Systems Review of Systems: All systems reviewed & are unremarkable except as noted in HPI and below Cardiovascular: Cardiovascular: Reports no additional cardiovascular complaints, Denies chest pain and Denies dyspnea Respiratory: Respiratory: Reports no additional respiratory complaints and Denies dyspnea Gastrointestinal: Gastrointestinal: Reports abdominal pain, Denies change in bowel habits, Denies diarrhea, Denies nausea and Denies vomiting Genitourinary: Genitourinary: Reports pelvic pain Musculoskeletal: Musculoskeletal: Reports back pain Integumentary/Breasts: Skin/Breast: Reports system reviewed and no additional complaints, except as docu Neurologic: Reports system reviewed and no additional complaints, except as documented [facility] Past Medical History Medical History Anemia Acid reflux Arthritis Hematochezia Dyslipidemia Hypothyroidism (acquired) BMI greater than 40 Prediabetes Goiter Surgical History Surgical History [place] teeth removed H/O colonoscopy Family History Family History Father Pancreatic cancer Diabetes mellitus Mother Hypertension Thyroid disease Sibling Thyroid disease Grandparent Hypertension Other Cerebrovascular accident Family history of arthritis Social History Social History Years smoked: 1 Smoking status: Former smoker Second hand tobacco smoke exposure: No Smoking end date: 07/22/04 Additional smoking assessment comments: smoked occassionally in the past Alcohol intake: former Substance use: never Substance use type: does not use Living arrangements: with family Additional living arrangements comments: and son Occupation/Education: occupation 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 Gender identity (if verbalized by the patient): Female Spiritual care concerns: No Meds Home Medications and Allergies Home Medications ?Medication ?Instructions ?Recorded ?Confirmed ?Type ferrous sulfate 325 mg (65 mg 325 mg PO DAILY 10/09/19 07/30/25 History iron) tablet magnesium 250 mg tablet 400 mg PO DAILY 04/12/21 07/30/25 History cholecalciferol (vitamin D3) 25 25 mcg PO DAILY 04/01/23 07/30/25 History mcg (1,000 unit) capsule mecobalamin (vitamin B12) 1,000 3,000 mcg PO DAILY 08/10/24 07/30/25 History mcg chewable tablet (B12 Active) potassium chloride 10 mEq 10 meq PO DAILY 08/10/24 07/30/25 History capsule,extended release pyridoxine (vitamin B6) 25 mg 25 mg PO DAILY 08/10/24 07/30/25 History tablet levothyroxine 125 mcg tablet 125 mcg PO .COMPLEX #90 tabs 10/07/24 07/30/25 Rx aspirin 81 mg tablet,delayed 81 mg PO DAILY 12/02/24 07/30/25 History release cetirizine 10 mg tablet (Zyrtec) 10 mg PO DAILY PRN allergy symptoms 12/02/24 07/30/25 History docusate sodium 100 mg capsule 100 mg PO HS 07/22/25 07/22/25 History Allergies Allergy/AdvReac Type Severity Reaction Status Date / Time No Known Allergies Allergy Verified 07/30/25 08:18 Vital Signs Vital Signs - 24 hr 07/30/25 08:00 Temperature 97.9 F Pulse Rate 66 Respiratory Rate 14 Blood Pressure 120/80 Pulse Oximetry 97 Oxygen Delivery Room Air Exam Const: Orientation/consciousness: oriented to person and oriented to place HENMT: Head: normal to inspection Eyes: General: appearance normal, both eyes and all related structures Resp: Effort & Inspection: normal respiratory effort Auscultation: clear to auscultation bilaterally Cardio: Rate: regular rate Rhythm: regular rhythm GI: Inspection: normal to inspection GI Palp: No Rebound tenderness present Neuro: General: oriented to person and oriented to place Cognition (Neuro): normal cognition Extrem: General: normal to inspection Psych: Appearance: grossly normal and well kempt Assessment and Plan Assessment and plan (1) Menorrhagia: Code(s): N92.0 - Excessive and frequent menstruation with regular cycle Status: Acute Assessment and Plan: Will proceed with endometrial ablation and hysteroscopy possible dilation and curettage if needed.
[2025-07-30 08:27] LABS: BEDSIDEPREGUCG Negative (Negative)
--- NOTE | 2025-07-30 08:56 | WPDHPUPDATE1 ---
History and Physical Update Update Date/Time: 07/30/25 08:56 History and Physical has been reviewed, including an updated exam of the patient. There are NO changes in the patient's condition. Risks, benefits, and alternatives have been discussed and questions answered. Patient agrees to proceed with procedure.
--- NOTE | 2025-07-30 09:12 | WPDANESEPPF ---
Anes - Initial Pre Proc Eval Procedure: Operation Date: 07/30/25 09:30 Proposed Procedures p Hysteroscopy Dilation and Curettage Kierra Endometrial Ablation - Edward Keith MD Date/Time: 07/30/25 09:12 Surgeon: Edward Keith MD Pre Op Diagnosis: menorrhagia Patient Data Age: 45 Gender: F Height: 1.63 m Weight: 109.3 kg Last Vital Signs Temp 97.9 F 07/30/25 08:00 Pulse 66 07/30/25 08:00 Resp 14 07/30/25 08:00 BP 120/80 07/30/25 08:00 Pulse Ox 97 07/30/25 08:00 O2 Del Method Room Air 07/30/25 08:00 Allergies Allergy/AdvReac Type Severity Reaction Status Date / Time No Known Allergies Allergy Verified 07/30/25 08:18 Home Medications ?Medication ?Instructions ?Recorded ?Confirmed ?Type ferrous sulfate 325 mg (65 mg 325 mg PO DAILY 10/09/19 07/30/25 History iron) tablet magnesium 250 mg tablet 400 mg PO DAILY 04/12/21 07/30/25 History cholecalciferol (vitamin D3) 25 25 mcg PO DAILY 04/01/23 07/30/25 History mcg (1,000 unit) capsule mecobalamin (vitamin B12) 1,000 3,000 mcg PO DAILY 08/10/24 07/30/25 History mcg chewable tablet (B12 Active) potassium chloride 10 mEq 10 meq PO DAILY 08/10/24 07/30/25 History capsule,extended release pyridoxine (vitamin B6) 25 mg 25 mg PO DAILY 08/10/24 07/30/25 History tablet levothyroxine 125 mcg tablet 125 mcg PO .COMPLEX #90 tabs 10/07/24 07/30/25 Rx aspirin 81 mg tablet,delayed 81 mg PO DAILY 12/02/24 07/30/25 History release cetirizine 10 mg tablet (Zyrtec) 10 mg PO DAILY PRN allergy symptoms 12/02/24 07/30/25 History docusate sodium 100 mg capsule 100 mg PO HS 07/22/25 07/22/25 History Laboratory Tests 07/30/25 08:00 POC Urine HCG, Qual Negative (Negative) Patient hx anesthesia problems: none Family hx anesthesia problems: none Results Review: All pre-operative results and documents have been reviewed as part of the pre-operative evaluation. [facility] Past Medical History Medical History Anemia Acid reflux Arthritis Hematochezia Dyslipidemia Hypothyroidism (acquired) BMI greater than 40 Prediabetes Goiter Surgical History Surgical History [place] teeth removed H/O colonoscopy Family History Family History Father Pancreatic cancer Diabetes mellitus Mother Hypertension Thyroid disease Sibling Thyroid disease Grandparent Hypertension Other Cerebrovascular accident Family history of arthritis Social History Social History Years smoked: 1 Smoking status: Former smoker Second hand tobacco smoke exposure: No Smoking end date: 07/22/04 Additional smoking assessment comments: smoked occassionally in the past Alcohol intake: former Substance use: never Substance use type: does not use Living arrangements: with family Additional living arrangements comments: and son Occupation/Education: occupation 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 Gender identity (if verbalized by the patient): Female Spiritual care concerns: No Anes - Eval Final PreProcedure Day of Procedure 07/30/25 09:12 Patient weight: obese Lungs: normal air movement Airway: Mallampati scale class II Neurological: alert and oriented Last oral intake: >/= 8 hours ASA classification: III Emergent: no Anesthetic plan: proceed Anesthesia type and monitoring: general GIVS and LMA and standard monitoring Results Review: All pre-operative results and documents have been reviewed as part of the pre-operative evaluation. Hypothyroidism, BMI 41. Active, pt works in a [employer], walks continuously, no cp or sob. Informed Consent: The patient's anesthetic plan and its attendant risks and benefits were discussed with the patient/family/POA. Questions were solicited and answers provided to the satisfaction of the patient/family/POA.
[2025-07-30] MEDS: ceFAZolin 2 GM in SODIUM CHLORIDE 0.9% IV 50 ML 100 ML IVPB (09:20)
[2025-07-30] MEDS: LIDOCAINE 1% LOCAL INJ 10 ML VIAL INFILTRATE (09:31)
--- NOTE | 2025-07-30 09:43 | W.PM.PROC2 ---
Procedure Note - Detailed Date of Procedure 07/30/25 Pre-op Diagnosis menorrhagia Post-op Diagnosis Same Procedure Performed loop electrosurgical excision procedure Surgeon Edward Keith MD Anesthesia MAC and Local Description of Procedure After informed consent was obtained patient was taken to the operating room and adequate IV sedation was administered. Attention was turned to the vagina. Speculum was inserted. Single-tooth tenaculum placed on the anterior lip of the cervix. 10 cc of 1% lidocaine was injected at the cervical vaginal interface at 2:58 a.m. and 10 position. The uterus was sounded to 8 cm. The cervix was dilated to an 8 Dailey dilator. The cervical length was 4 cm . The hysteroscope was inserted into the cavity. The findings were a normal uterine cavity. The hysteroscope was removed. The Kierra ablation instrument was inserted into the cavity. Cavity assessment was performed and confirmed intact. The ablation was enabled. After 120 seconds the Kierra stopped. The ablation instrument was removed. The hysteroscope was inserted and there was noted to be good eschar with the cavity. The hysteroscope was removed the single-tooth tenaculum was removed hemostasis was noted at the tenaculum site. Sponge count correct. The patient taken to recovery in stable condition. Estimated Blood Loss 5 Drains No Packing No Pathology None sent Complications No immediate complications Condition Stable Disposition Same day [facility] Billing Surgery - Charge Forward: Surgery Billing
[2025-07-30 09:45] VITALS: BP 115/65; PULSE 73; RESP 16; O2SAT 95
[2025-07-30 10:15] VITALS: BP 131/79; PULSE 56
[2025-07-30 10:45] VITALS: BP 127/74; PULSE 57
[2025-07-30] MEDS: oxyCODONE HCL (*CRX) 5 MG TAB IR PO (10:47)
[2025-07-30 11:10] VITALS: BP 130/79; PULSE 50
== END 2025-07-30 11:19 | disposition home or self-care (01) ==
PROVIDERS: Anesthesiology; PCP Internal Medicine; Visit Provider Obstetrics & Gynecology
PROC: 0U5B8ZZ Destruction of Endometrium, Via Natural or Artificial Opening Endoscopic (ICD-10-PCS; CPT 58563; principal; 2025-07-30 09:30)
DX: N92.0 Excessive and frequent menstruation with regular cycle (principal); Z87.891 Personal history of nicotine dependence; E66.9 Obesity, unspecified; Z68.41 Body mass index [BMI] 40.0-44.9, adult
CPT/HCPCS: 58563; J0690; A9270; J2003; J2250; J2405; J2704; J3010; J7120

== ENCOUNTER 2025-08-02 15:02 | Outpatient (CLI) | payer OTHER, SELFPAY ==
--- NOTE | ~2025-08-02 | MM_ITS ---
EXAMINATION: MM screening [facility] BI w nguyen HISTORY: Screening TECHNIQUE: Craniocaudal and mediolateral oblique 3-D tomosynthesis images were obtained and synthetic 2-D images were generated. CAD analysis was submitted and interpreted. COMPARISON: Comparison to multiple prior studies sequentially, with oldest reviewed study dated 07/26/2023. BREAST PARENCHYMAL COMPOSITION: There are scattered areas of fibroglandular density. FINDINGS: There is no evidence of suspicious mass, calcification, or architectural distortion to suggest malignancy in either breast. Scattered benign-appearing calcifications are present. IMPRESSION: 1. No mammographic evidence of malignancy. 2. Recommend routine screening mammography in one year. BI-RADS Category 2: Benign finding(s). Reviewed, dictated and finalized at location B.
== END 2025-08-02 15:03 | disposition home or self-care (01) ==
PROVIDERS: PCP Obstetrics & Gynecology; Visit Provider Family Medicine
DX: Z12.31 Encounter for screening mammogram for malignant neoplasm of breast (principal)
CPT/HCPCS: 77063; 77067